=== PATIENT | female | born 1980 | race Two or more races ===

== ENCOUNTER → 2017-08-25 | Outpatient (CLI) | payer MEDICAID ==
[2017-08-25 15:47] LABS: Basophils # (auto) 0 uL; Basophils % (auto) 0.4 % (0.0-2.0); Eosinophils # (auto) 0.1 uL; Eosinophils % (auto) 1.6 % (0.0-7.0); Hematocrit 38.5 % (36.0-46.0); Hemoglobin 12.9 g/dL (12.2-16.2); Lymphocytes # (auto) 2.3 uL; Lymphocytes % (auto) 26.7 % (10.0-50.0); Mean Corpuscular Hemoglobin 29.2 pg (28.0-32.0); Mean Corpuscular Hgb Conc. 33.5 g/dL (32.0-36.0); Mean Corpuscular Volume 87.3 fL (80.0-100.0); Monocytes # (auto) 0.4 uL; Neutrophils # (auto) 5.6 uL; Neutrophils % (auto) 66.3 % (37.0-80.0); Nucleated Red Blood Cells % 0.1 %; Platelet Count (auto) 267 10^3/uL (140-450); Red Blood Cells 4.41 10^6/uL (4.0-5.20); Red Cell Distribution Width 12.8 % (11.8-14.3); White Blood Cell 8.5 10^3/uL (4.4-10.8)
[2017-08-25 17:00] LABS: Alcohol, Urine < 3.0 mg/dL (0-5); Amphetamine Screen, Urine NEGATIVE (NEGATIVE); Barbiturate Scree,Urine NEGATIVE (NEGATIVE); Benzodiazephine Screen, Urine NEGATIVE (NEGATIVE); Cannabinoid Screen, Urine NEGATIVE (NEGATIVE); Cocaine Screen, Urine NEGATIVE (NEGATIVE); Opiate Scree,Urine NEGATIVE (NEGATIVE); Phencyclidine Screen, Urine NEGATIVE (NEGATIVE)
[2017-08-26 04:06] LABS: RPR Non Reactive (Non Reactive)
== END | disposition home or self-care (01) ==
LOC: LAB 15:08
PROVIDERS: ATTEND Obstetrics & Gynecology
DX: Z34.80 Encounter for supervision of other normal pregnancy, unspecified trimester (principal); Z3A.00 Weeks of gestation of pregnancy not specified
CPT/HCPCS: 36415; 80307; 81220; 83036; 84144; 84702; 85025; 86592; 86703; 86762; 86850; 86900; 86901; 87086; 87340

== ENCOUNTER 2017-09-15 12:17 | Emergency (ER) | payer MEDICAID ==
[~2017-09-15] VITALS: Ht 152.4 cm; Wt 68.0 kg
[2017-09-15 12:47] VITALS: BP 125/83
== END 2017-09-15 15:31 | disposition home or self-care (01) ==
LOC: EDBD 12:17 → ER 12:17
DX: O9A.212 Injury, poisoning and certain other consequences of external causes complicating pregnancy, second trimester (principal); S46.912A Strain of unspecified muscle, fascia and tendon at shoulder and upper arm level, left arm, initial encounter; S29.012A Strain of muscle and tendon of back wall of thorax, initial encounter; Z3A.16 16 weeks gestation of pregnancy; V43.52XA Car driver injured in collision with other type car in traffic accident, initial encounter; Y93.89 Activity, other specified; Y92.89 Other specified places as the place of occurrence of the external cause; Y99.8 Other external cause status
CPT/HCPCS: 76805

== ENCOUNTER 2018-01-31 15:00 | Observation (INO) | payer MEDICAID ==
[2018-01-31 15:51] LABS: Basophils # (auto) 0 uL; Basophils % (auto) 0.2 % (0.0-2.0); Eosinophils # (auto) 0.1 uL; Eosinophils % (auto) 1.6 % (0.0-7.0); Hematocrit 33.1 % (36.0-46.0); Hemoglobin 11.1 g/dL (12.2-16.2); Lymphocytes # (auto) 1.8 uL; Lymphocytes % (auto) 21.4 % (10.0-50.0); Mean Corpuscular Hemoglobin 27.7 pg (28.0-32.0); Mean Corpuscular Hgb Conc. 33.5 g/dL (32.0-36.0); Mean Corpuscular Volume 82.6 fL (80.0-100.0); Monocytes # (auto) 0.4 uL; Monocytes % (auto) 5.2 % (0.0-12.0); Neutrophils # (auto) 6.1 uL; Neutrophils % (auto) 71.6 % (37.0-80.0); Platelet Count (auto) 229 10^3/uL (140-450); Red Blood Cells 4.01 10^6/uL (4.0-5.20); Red Cell Distribution Width 13.7 % (11.8-14.3); White Blood Cell 8.6 10^3/uL (4.4-10.8)
[2018-01-31] MEDS ORDERED: PREN-96 PO (18:00)
[2018-02-01 06:09] LABS: RPR Non Reactive (Non Reactive)
== END 2018-01-31 16:30 | disposition home or self-care (01) | DRG 566 ==
LOC: LDRP 15:00
PROVIDERS: ADMIT Specialist; ATTEND Specialist
DX: O36.5990 Maternal care for other known or suspected poor fetal growth, unspecified trimester, not applicable or unspecified (principal); O09.529 Supervision of elderly multigravida, unspecified trimester; Z3A.00 Weeks of gestation of pregnancy not specified
CPT/HCPCS: 36415; 59025; 81002; 85025; 86592; G0378

== ENCOUNTER → 2018-02-01 | Outpatient (CLI) | payer MEDICAID ==
[~2018-02-01] MED LIST: PREN-96 PO
== END | disposition home or self-care (01) ==
LOC: LAB 16:30
PROVIDERS: ATTEND Obstetrics & Gynecology
DX: O23.593 Infection of other part of genital tract in pregnancy, third trimester (principal); Z3A.31 31 weeks gestation of pregnancy
CPT/HCPCS: 87081

== ENCOUNTER 2018-02-02 10:30 | Observation (INO) | payer MEDICAID | END 2018-02-02 13:00 | disposition home or self-care (01) | DRG 566 | LOC: LDRP 10:30 | PROVIDERS: ADMIT Specialist; ATTEND Specialist | DX: O36.5930 Maternal care for other known or suspected poor fetal growth, third trimester, not applicable or unspecified (principal); Z3A.35 35 weeks gestation of pregnancy | CPT/HCPCS: 59025; 76818; 81002; G0378 ==

== ENCOUNTER 2018-03-01 09:15 | Observation (INO) | payer MEDICAID | END 2018-03-01 12:15 | disposition home or self-care (01) | DRG 566 | LOC: LDRP 09:15 | PROVIDERS: ADMIT Specialist; ATTEND Specialist | DX: O26.893 Other specified pregnancy related conditions, third trimester (principal); Z3A.39 39 weeks gestation of pregnancy | CPT/HCPCS: 59025; 76818; 81002; G0378 ==

== ENCOUNTER 2018-03-07 11:30 | Observation (INO) | payer MEDICAID | END 2018-03-07 13:05 | disposition home or self-care (01) | DRG 566 | LOC: LDRP 11:30 | PROVIDERS: ADMIT Specialist; ATTEND Specialist | DX: O48.0 Post-term pregnancy (principal); O09.523 Supervision of elderly multigravida, third trimester; Z3A.40 40 weeks gestation of pregnancy | CPT/HCPCS: 59025; 76818; 81002; G0378 ==

== ENCOUNTER 2018-03-08 20:55 | Inpatient (IN) | payer MEDICAID ==
[~2018-03-08] VITALS: Ht 152.4 cm; Wt 70.8 kg
[2018-03-08] MEDS ORDERED: LACT. RINGERS/OXYTOCIN 20UNITS 1,000 ML IV SCH (21:14)
[2018-03-08] MEDS ORDERED: CARBOPROST TROMETHAMINE 250 MCG/1ML VIAL IM PRN (21:15)
[2018-03-08] MEDS ORDERED: LIDOCAINE 2% (LOCAL ANESTH.) PF 5ml SDV ID ONE (21:15)
[2018-03-08] MEDS ORDERED: METHYLERGONOVINE MALEATE 0.2 MG/ML AMP IM PRN (21:15)
[2018-03-08] MEDS ORDERED: PHISODERM TOP SOLN 240ML BTL TOP PRN (21:15)
[2018-03-08] MEDS ORDERED: DERMOPLAST 60ML BOTTLE TOP PRN (21:15)
[2018-03-08] MEDS ORDERED: WITCH HAZEL-GLYCERIN PAD TOP PRN (21:15)
[2018-03-08] MEDS ORDERED: NALBUPHINE HCL 10 MG/1ml INJECTION IV PRN (21:15)
[2018-03-08 22:13] LABS: Basophils # (auto) 0 uL; Basophils % (auto) 0.3 % (0.0-2.0); Eosinophils # (auto) 0.1 uL; Eosinophils % (auto) 1.4 % (0.0-7.0); Hematocrit 29.9 % (36.0-46.0); Hemoglobin 10.1 g/dL (12.2-16.2); Lymphocytes % (auto) 28.1 % (10.0-50.0); Mean Corpuscular Hemoglobin 27.6 pg (28.0-32.0); Mean Corpuscular Hgb Conc. 33.7 g/dL (32.0-36.0); Mean Corpuscular Volume 81.7 fL (80.0-100.0); Monocytes # (auto) 0.5 uL; Monocytes % (auto) 6.5 % (0.0-12.0); Neutrophils # (auto) 4.6 uL; Neutrophils % (auto) 63.7 % (37.0-80.0); Nucleated Red Blood Cells % 0.1 %; Platelet Count (auto) 182 10^3/uL (140-450); Red Blood Cells 3.65 10^6/uL (4.0-5.20); Red Cell Distribution Width 14.7 % (11.8-14.3); White Blood Cell 7.3 10^3/uL (4.4-10.8)
[2018-03-08 22:18] LABS: Urine Bacteria FEW /hpf (None Seen); Urine Blood Negative /uL (Negative); Urine Specific Gravity 1.007 (1.001-1.035); Urine WBC 5 /hpf (0 - 5)
[2018-03-08 22:31] LABS: Albumin 2.4 g/dL (3.4-5.0); BUN/Creatinine Ratio 13.7; Calcium 7.6 mg/dL (8.5-10.1)
[2018-03-08 22:34] LABS: Bilirubin, Total 0.2 mg/dL (0.2-1.0); Total Protein 6.1 g/dL (6.4-8.2)
[2018-03-08 22:43] LABS: INR 0.88 (0.9-1.15); Prothrombin Time 9.5 sec (9.27-12.13)
[2018-03-09] MEDS ORDERED: ACCU-CHEK COMFORT CURVE STRIP VI SCH (02:00)
[2018-03-09] MEDS: LACTATED RINGER'S 1,000 ML IV SCH ×3 (02:22→14:07)
[2018-03-09] MEDS ORDERED: PROMETHAZINE HCL 25 MG/ML 1ML IV PRN (15:15)
[2018-03-09] MEDS ORDERED: TETRACAINE 1% INJ 2 ML VIAL IJ ONE (16:27)
[2018-03-09] MEDS ORDERED: MORPHINE SULF(PF) 0.5MG/ML 10ML VIAL ONE (16:41)
[2018-03-09] MEDS ORDERED: fentaNYL CITRATE 100 MCG/2 ML VL ONE (16:41)
[2018-03-09] MEDS ORDERED: METHYLERGONOVINE MALEATE 0.2 MG/ML AMP IM ONE (16:57)
[2018-03-09] MEDS ORDERED: LACT. RINGERS/OXYTOCIN 20UNITS 500 ML IV ONE (17:17)
[2018-03-09] MEDS ORDERED: IBUPROFEN 600 MG TAB PO PRN (17:30)
[2018-03-09] MEDS ORDERED: ACETAMINOPHEN 325 MG TAB PO PRN (17:30)
[2018-03-09] MEDS ORDERED: LACT. RINGERS/OXYTOCIN 20UNITS 1,000 ML IV SCH (18:17)
[2018-03-10 03:25] VITALS: BP 107/55
[2018-03-10 05:06] LABS: RPR Non Reactive (Non Reactive)
[2018-03-10 07:15] VITALS: BP 91/54
[2018-03-10 11:00] VITALS: BP 91/50
[2018-03-10 15:00] VITALS: BP 101/52
[2018-03-10 18:35] VITALS: BP 120/75
== END 2018-03-10 18:35 | disposition home or self-care (01) | DRG 560 ==
LOC: LDRP 20:55
PROVIDERS: ADMIT Specialist; ATTEND Specialist
PROC: 10E0XZZ Delivery of Products of Conception, External Approach (ICD-10-PCS; principal; 2018-03-09 16:40)
DX: O48.0 Post-term pregnancy (principal); O36.5930 Maternal care for other known or suspected poor fetal growth, third trimester, not applicable or unspecified; O77.0 Labor and delivery complicated by meconium in amniotic fluid; O69.81X0 Labor and delivery complicated by cord around neck, without compression, not applicable or unspecified; O76 Abnormality in fetal heart rate and rhythm complicating labor and delivery; Z3A.40 40 weeks gestation of pregnancy; Z37.0 Single live birth
CPT/HCPCS: 36415; 59025; 59409; 59414; 80053; 81001; 81002; 85025; 85610; 85730; 86592; 86850; 86900; 86901; 96360; 96361; 96365; 96366; 96372; J2001; J2590